=== PATIENT | male | born 1980 | race Two or more races ===

== ENCOUNTER 2019-12-20 14:03 | Emergency (ER) | payer SELFPAY ==
[~2019-12-20] VITALS: Ht 180.3 cm; Wt 87.0 kg
[2019-12-20 14:18] VITALS: BP 132/78
== END 2019-12-20 16:05 | disposition home or self-care (01) ==
LOC: ER 14:03
DX: J30.9 Allergic rhinitis, unspecified (principal)
CPT/HCPCS: 99283